=== PATIENT | female | born 1965 | race Caucasian/White ===

== ENCOUNTER 2024-10-15 17:45 | Inpatient (IN) | payer BC, SELFPAY ==
[2024-10-15] VITALS (41 sets, daily range): BP systolic 98–132; BP diastolic 54–78; PULSE 79–120; RESP 13–21; TEMP 36.1–36.3; O2SAT 87–96
--- NOTE | 2024-10-15 17:45 | RT.EKG_ITS ---
APPROVED REPORT Exam: Resting ECG Reason for Exam: overdose Patient Location: E HR:107 bpm ECG Measurements Heart Rate 107 AXIS OK 192 P 18 QRSd 99 QRS -21 QT 347 T 104 QTc 464 Conclusion Sinus tachycardia...rate> 99 Probable LVH with secondary repol abnrm...multiple LVH criteria
--- NOTE | 2024-10-15 17:54 | ED.GENADUL_ITS ---
Discharge Plan Disposition Patient Disposition: Admit to [facility] Condition: Serious Discharge Details Clinical Impression: Overdose, Hypokalemia, Hypomagnesemia Primary Care Provider: Unknown,Unknown ED Provider: Arnoldo Vance [place] Meds and New Rx's Prescriptions: No Action venlafaxine [Effexor XR] 150 MG capsule,extended release 24hr 150 mg PO DAILY Qty: 1 amlodipine 5 MG tablet 5 mg PO DAILY Qty: 1 valacyclovir 500 MG tablet 1,000 mg PO DAILY Qty: 1 Patient Comments: few days prior aspirin [Aspir-81] 81 MG tablet,delayed release (DR/EC) 81 mg PO DAILY Qty: 1 levothyroxine [Synthroid] 75 MCG tablet 75 mcg PO DAILY Qty: 1 losartan-hydrochlorothiazide 1 EACH tablet 1 tab-cap PO DAILY Qty: 1 simvastatin 20 MG tablet 20 mg PO HS Qty: 1 fluticasone propion-salmeterol [Advair Diskus] 1 EACH blister with device 1 puff Inhalation BID Qty: 1 albuterol sulfate [Ventolin HFA] 8 GM HFA aerosol inhaler 2 puff Inhalation Q4H PRN Qty: 1 Patient Comments: SOB lamotrigine 100 MG tablet 100 mg PO DAILY Qty: 2 nebivolol [Bystolic] 10 MG tablet 10 mg PO DAILY Qty: 1 Patient Comments: not taking omega 6-hho-kto-fish oil 1,200 MG capsule 1,200 mg PO BID Qty: 3 Rx Instructions: 2 TABS QAM, 1 TAB QPM METROGEL .75% Topical BID Qty: 1 Patient Comments: ROSACEA benzonatate [Tessalon Perles] 100 MG capsule 200 mg PO TID PRN omeprazole [Prilosec] 10 MG capsule,delayed release(DR/EC) 10 mg PO DAILY montelukast [Singulair] 10 MG tablet 10 mg PO DAILY Patient Comments: ran out metoprolol succinate 50 MG tablet extended release 24 hr 50 mg PO DAILY ibuprofen 800 MG tablet 800 mg PO TID PRNQty: 30 0RF meclizine [Antivert] 25 MG tablet 25 mg PO QID PRN PRN (Reason: Vertigo) Qty: 30 0RF prochlorperazine maleate [Compazine] 10 MG tablet 10 mg PO QID PRN PRN (Reason: NAUSEA VOMITNG HEADACHE) Qty: 10 0RF Ozempic 2 mg/dose (8 mg/3 mL) pen injector 2 mg SUBCUT .weekly Patient Comments: INJECT 2MG UNDER THE SKIN ONCE A WEEK rosuvastatin 20 mg tablet 20 mg PO DAILY Patient Comments: TAKE ONE TABLET BY MOUTH EVERY DAY HPI General Mode of arrival: wheelchair . Date/Time Provider Initiated Documentation: 10/15/24 17:46 . Limitations to Documentation: no limitations . Information obtained by: patient . History of Present Illness 58 year old F presents to the emergency department with the chief complaint of took extra seroquel to sleep and self harm, Patient started experiencing this hour(s) (1) and it has been constant. No relieving factors improve symptom(s), No exacerbating factors reported . Patient notes denies chest pain and shortness of breath. Patient did receive the following treatments prior to arrival, none Related Data Home Medications ?Medication ?Instructions ?Recorded ?Confirmed Metrogel .75% topical BID ##1 04/09/14 09/27/15 albuterol sulfate 90 mcg/actuation 2 puff inhalation Q4H PRN ##1 04/09/14 10/15/24 aerosol inhaler (Ventolin HFA) amlodipine 5 mg tablet 5 mg PO DAILY #1 tab-cap 04/09/14 10/15/24 aspirin 81 mg tablet,delayed 81 mg PO DAILY ##1 04/09/14 10/15/24 release (Aspir-) fluticasone 500 mcg-salmeterol 50 1 puff inhalation BID ##1 04/09/14 10/15/24 mcg/dose blistr powdr for inhalation (Advair Diskus) lamotrigine 100 mg tablet 100 mg PO DAILY #2 tab-caps 04/09/14 10/15/24 levothyroxine 75 mcg tablet 75 mcg PO DAILY #1 tab-cap 04/09/14 10/15/24 (Synthroid) losartan 100 1 tab-cap PO DAILY #1 tab-cap 04/09/14 10/15/24 mg-hydrochlorothiazide 25 mg tablet nebivolol 10 mg tablet (Bystolic) 10 mg PO DAILY #1 tab-cap 04/09/14 10/15/24 omega 0-uht-eql-fish oil 1,200 mg 1,200 mg PO BID ##3 04/09/14 10/15/24 (144 mg-216 mg) capsule simvastatin 20 mg tablet 20 mg PO HS #1 tab-cap 04/09/14 10/15/24 valacyclovir 500 mg tablet 1,000 mg PO DAILY #1 tab-cap 04/09/14 10/15/24 venlafaxine 150 mg 150 mg PO DAILY #1 tab-cap 04/09/14 10/15/24 capsule,extended release 24 hr (Effexor XR) benzonatate 100 mg capsule 200 mg PO TID PRN 07/11/14 10/15/24 (Tessalon Perles) montelukast 10 mg tablet 10 mg PO DAILY 12/26/14 10/15/24 (Singulair) omeprazole 10 mg capsule,delayed 10 mg PO DAILY 12/26/14 10/15/24 release (Prilosec) ibuprofen 800 mg tablet 800 mg PO TID PRN #30 tabs 08/19/15 10/15/24 metoprolol succinate 50 mg 50 mg PO DAILY 08/19/15 10/15/24 tablet,extended release 24 hr meclizine 25 mg tablet (Antivert) 25 mg PO QID PRN PRN Vertigo #30 09/28/15 10/15/24 tabs prochlorperazine maleate 10 mg 10 mg PO QID PRN PRN NAUSEA 09/28/15 10/15/24 tablet (Compazine) VOMITNG HEADACHE ##10 rosuvastatin 20 mg tablet 20 mg PO DAILY 10/15/24 10/15/24 semaglutide 2 mg/dose (8 mg/3 mL) 2 mg subcut .weekly 10/15/24 10/15/24 subcutaneous pen injector (Ozempic) Previous Rx's ?Medication ?Instructions ?Recorded ibuprofen 800 mg tablet 800 mg PO TID PRN #30 tabs 08/19/15 meclizine 25 mg tablet (Antivert) 25 mg PO QID PRN PRN Vertigo #30 09/28/15 tabs prochlorperazine maleate 10 mg 10 mg PO QID PRN PRN NAUSEA 09/28/15 tablet (Compazine) VOMITNG HEADACHE ##10 Allergies Allergy/AdvReac Type Severity Reaction Status Date / Time hydrocodone Allergy Intermediate makes face Unverified 09/27/15 21:46 swell bupropion HCl (From AdvReac suicidal Unverified 09/27/15 21:46 Wellbutrin) ENVIRONMENTAL Allergy SINUS, Uncoded 09/27/15 21:46 ITCHY EYES General Stated Complaint: PsychEval DAMIÁN: 2 Review of Systems All systems reviewed & are unremarkable except as noted in HPI and below Constitutional Constitutional: Denies chills, Denies fever(s) and Denies weakness Cardiovascular Cardiovascular: Denies chest pain and Denies dyspnea Respiratory Respiratory: Denies cough and Denies dyspnea Gastrointestinal Gastrointestinal: Denies abdominal pain, Denies nausea and Denies vomiting Neurologic Neurologic: Denies weakness Psychiatric Psychiatric: Reports depression Exam Const General: no acute distress and other (drowsy) Orientation: alert HENMT Head: normal to inspection Ears: external ears normal General nose exam: external nose normal Mouth: moist mucous membranes Eyes General: appearance normal, both eyes and all related structures Neck Neck: normal visual inspection Resp Effort & Inspection: normal respiratory effort and able to speak in complete sentences Cardio Rate: regular rate Skin General skin exam: no rashes or lesions noted Neuro General: patient alert and patient oriented x3 Cognition: normal cognition Extrem General: normal to inspection Psych Mental Status: mental status grossly normal Attitude: cooperative Course Vital Signs Vital signs: Vital Signs Temperature 36.1 C L 10/15/24 17:49 Pulse 120 H 10/15/24 17:49 Respiratory Rate 15 10/15/24 17:49 Blood Pressure 128/68 10/15/24 17:49 Pulse Oximetry 92 10/15/24 17:49 Temperature 36.1 C L 10/15/24 17:49 Pulse 120 H 10/15/24 17:49 Respiratory Rate 15 10/15/24 17:49 Blood Pressure 128/68 10/15/24 17:49 Blood Pressure Position Sitting 10/15/24 17:49 Pulse Oximetry 92 10/15/24 17:49 Oxygen Delivery Method Room Air 10/15/24 17:49 Oxygen Flow Rate 0 10/15/24 17:49 Medical Decision Making 58-year-old female who states she has a history of PTSD and bipolar comes in with several months of thoughts of self-harm and tonight took 68 of her Seroquel to sleep and also for self-harm. She denies ingesting anything else and denies any alcohol or drug use. She arrives awake but does seem drowsy. She is protecting her airway. She is answering questions appropriately. She moves her extremities all equally. Suspect she did overdose on Seroquel. Will perform talk screen with ethyl alcohol, urine drug screen, acetaminophen and salicylate levels, and also check a CBC and metabolic panel keep on telemetry. Labs remarkable for potassium of 2.5 and magnesium 1.7, IV and oral repletion ordered for potassium and IV repletion ordered for magnesium. Otherwise talk screen negative. Will repeat 4 hours acetaminophen and salicylate patient is still drowsy but arousable. Is at risk for sedation and hypotension with the seroquel, Will need overnight observation until medically cleared, will discuss with hospitalist about admission. Differential Diagnosis Differential Diagnosis: Overdose, depression, SI Lab Data Lab results reviewed: Yes I reviewed the patient's lab results. ECG Data Attestation: I personally reviewed and interpreted this ECG (s) as follows: Prior ECG tracings: not available for review Interpretation: sinus tachycardia, rate of 107 pr 192, no stemi, no prolonged qtc Quality:SDOH Health Related Social Needs: No Data to Display [facility] All Active Problems (Updated 10/15/24 @ 19:15 by Arnoldo Vance MD) Hypomagnesemia (Acute) Hypokalemia (Acute) Overdose (Acute) Surgical History (Updated 08/23/18 @ 14:33 by [employer] [place]) Ligation of fallopian tube Cholecystectomy Social History Smoking/Tobacco Use Status: Never Smoking risk assessment performed?: Yes Drug use: Never
[2024-10-15 18:08] LABS: Bilirubin Negative (Negative); Blood Negative (Negative); Clarity Clear (Clear); Glucose Negative (Negative); Ketones Negative (Negative); Leukocyte Esterase Trace (Negative); Nitrite Negative (Negative); Urobilinogen 0.2 mg/dL (Up to 0.2)
[2024-10-15 18:18] LABS: BE (Venous) 1 mmol/L (-2-3); HCO3 (Venous) 25 mmol/L (23-28); O2 Sat (Venous) 99 %; TCO2 (Venous) 22 mmol/L (24-29); pCO2 (Venous) 35 mmHg (41-51); pH (Venous) 7.46 (7.31-7.41); pO2 (Venous) 98 mmHg
[2024-10-15 18:24] LABS: *AMPHETAMINES SCREEN URINE Negative (Negative); *BARBITURATES SCREEN URINE Negative (Negative); *BENZODIAZEPINES SCREEN URINE Negative (Negative); Cannabinoids THC Negative (Negative); Cocaine Screen,Urine Negative (Negative); METHADONE URINE SCREEN Negative (Negative); OPIATES URINE SCREEN Negative (Negative)
--- NOTE | 2024-10-15 18:25 | NUR.NOTE ---
Poision controll was contacted re patient. Posion control encouraged to repeat labs q4hrly, trend lactate, made aware of poison control recommendations
[2024-10-15 18:28] LABS: Tricyclic Antidepressants Negative (Negative)
[2024-10-15 18:28] LABS: Abs Immature Grans 0.01 10^3/uL (0.0-0.06); Absolute Basophil Count 0.05 10^3/uL (0.0-0.2); Absolute Eosinophil Count 0.06 10^3/uL (0.0-0.7); Absolute Lymphocyte Count 2.16 10^3/uL (1.2-3.4); Absolute Monocyte Count 0.43 10^3/uL (0.1-0.8); Absolute Neutrophil Count 4.15 10^3/uL (1.2-6.7); Basophils % 0.7 %; Eosinophils % 0.9 %; HCT 36.4 % (36.0-46.0); Immature Grans % 0.1 %; Lymphocytes % 31.5 %; MCH 25.7 pg (27.0-33.0); MCV 78 fL (80-95); MPV 9.5 fL (8.0-11.0); Monocytes % 6.3 %; Neutrophils % 60.5 %; Platelet Count 163 10^3/uL (130-400); RBC 4.67 10^6/uL (3.93-5.22); RDW 15.9 % (11.7-14.6); RDW-SD 44.5 fL; WBC 6.86 10^3/uL (4.4-10.8)
[2024-10-15 18:31] LABS: RBC 0-2 HPF (0-2)
[2024-10-15 18:32] LABS: Bacteria Few HPF (Negative); Crystals Few Amorphous HPF (Negative); Epithelial Cells Rare HPF (Negative); Mucus Trace (Negative); Other Cells Few Transitional (Negative)
[2024-10-15 18:33] LABS: C & S Indicated? No; Casts 0-2 Hyaline LPF (Negative)
[2024-10-15 18:35] LABS: INR 1.1 (0.9-1.1); PTT Activated 25.5 sec (23.6-32.8)
[2024-10-15 18:47] LABS: ALT 33 U/L (14-59); AST 23 U/L (15-37); Albumin 3.7 g/dL (3.4-5.0); Alkaline Phosphatase 70 U/L (46-116); Anion Gap 13.5 mmol/L (3-11); BUN 20 mg/dL (7-18); Bilirubin, Total 0.31 mg/dL (0.2-1.0); CO2 25.5 mmol/L (21.0-32.0); Calcium 9.3 mg/dL (8.5-10.1); Chloride 102 mmol/L (98-107); ETHANOL BLOOD < 3.0 mg/dL (<10); Estimated GFR 65.71 (mL/min/1.73m2); Glucose 179 mg/dL (74-106); Magnesium 1.7 mg/dL (1.8-2.4); Sodium 141 mmol/L (136-145); TSH (W/Ref FT4) 1.42 uIU/mL (0.36-3.74)
[2024-10-15 18:49] LABS: Potassium 2.5 mmol/L (3.5-5.1)
[2024-10-15 18:59] LABS: Salicylate < 2.8 mg/dL (<2.8)
[2024-10-15 19:00] LABS: Acetaminophen < 2 ug/mL (10-30)
[2024-10-15] MEDS: MAGNESIUM SULFATE 1 GM/100 ML BAG IV_INF (19:07)
[2024-10-15] MEDS: Potassium Chloride Liquid 20 MEQ PKT 40 MEQ PO (19:08)
[2024-10-15] MEDS: POTASSIUM CHLORIDE 20 MEQ/100 ML BAG 50 MEQ IV_INF (19:08)
--- NOTE | 2024-10-15 19:27 | HPE_ITS ---
Date of service: 10/15/24 Time of Service: 19:27 Assessment and Plan Assessment and plan (1) Intentional overdose: Status: Acute Assessment and plan: - Patient stated many months of thoughts of self-harm, but only acted upon it prior to arrival where she took 6-8 of her home Seroquel -Patient denied taking any alcohol, other illicit substances, salicylates or acetaminophen -Initial salicylate and acetaminophen level negative -Emergency room physician discussed with poison control who recommended monitoring the patient for 24 hours given the prolonged half-life of Seroquel -Monitor patient in the intensive care unit, and if she becomes significantly somnolent or unable to protect her airway well intubate for airway protection -Will reach back out to poison control if needed -As soon as patient is medically appropriate will need to reach out to mental health for consideration of the EEGing the patient (2) Hypokalemia: Status: Acute Assessment and plan: -Potassium noted to be 2.5 in the emergency department -Was given 40 mg p.o. and 20 mg IV -Follow-up a.m. BMP (3) Bipolar disorder: Status: Acute Assessment and plan: - Hold home psychiatric medications at this time (4) HTN (hypertension): Status: Chronic Assessment and plan: - Continue home amlodipine, hold home losartan/HCTZ -Continue home metoprolol (5) Hypothyroid: Status: Chronic Assessment and plan: - Continue home Synthroid History of Present Illness History of Present Illness Chief Complaint: Seroquel overdose Narrative: 58-year-old female with a past medical history of PTSD, bipolar, hypertension, hypothyroidism, asthma presents to the emergency department complaints of several months of self-harm and stating intentional Seroquel overdose. Patient states that over the last several months she has had increasing thoughts of self-harm though she has not acted upon those thoughts of health harm until this evening where she took about 6-8 of her home Seroquel. She denies having ingested any alcohol, drugs or other substances. In the emergency department patient was noted as being somewhat tachycardic but with otherwise normal vital signs. She was awake but drowsy, was able to protect her airway and was answering all questions appropriately and moving all extremities without difficulty. Initial talk screen, salicylates and acetaminophen levels were negative. While in the emergency department emergency room physician reached out to poison control who recommended repeating salicylate and acetaminophen levels in 4 hours, but stated that the patient should be observed for 24 hours given the overall half-life of Seroquel and risk of drowsiness and progression to respiratory failure. At which time emergency room physician paged hospitalist for admission for patient with Seroquel overdose who will be placed in the intensive care unit for close monitoring. Review of Systems All systems reviewed & are unremarkable except as noted in HPI and below PFSH All Active Problems (Updated 10/15/24 @ 21:06 by JV MARTIN) Hypothyroid (Chronic) HTN (hypertension) (Chronic) Bipolar disorder (Acute) Intentional overdose (Acute) Hypomagnesemia (Acute) Hypokalemia (Acute) Overdose (Acute) Surgical History (Updated 08/23/18 @ 14:33 by [employer]) Ligation of fallopian tube Cholecystectomy Social History Smoking/Tobacco Use Status: Never Smoking risk assessment performed?: Yes Drug use: Never Meds Allergies and Home Medications Allergies Allergy/AdvReac Type Severity Reaction Status Date / Time hydrocodone Allergy Intermediate makes face Unverified 09/27/15 21:46 swell bupropion HCl (From AdvReac suicidal Unverified 09/27/15 21:46 Wellbutrin) ENVIRONMENTAL Allergy SINUS, Uncoded 09/27/15 21:46 ITCHY EYES Home Medications ?Medication ?Instructions ?Recorded ?Confirmed ?Type Metrogel .75% topical BID ##1 04/09/14 09/27/15 History albuterol sulfate 90 mcg/actuation 2 puff inhalation Q4H PRN ##1 04/09/14 10/15/24 History aerosol inhaler (Ventolin HFA) amlodipine 5 mg tablet 5 mg PO DAILY #1 tab-cap 04/09/14 10/15/24 History aspirin 81 mg tablet,delayed 81 mg PO DAILY ##1 04/09/14 10/15/24 History release (Aspir-) fluticasone 500 mcg-salmeterol 50 1 puff inhalation BID ##1 04/09/14 10/15/24 History mcg/dose blistr powdr for inhalation (Advair Diskus) lamotrigine 100 mg tablet 100 mg PO DAILY #2 tab-caps 04/09/14 10/15/24 History levothyroxine 75 mcg tablet 75 mcg PO DAILY #1 tab-cap 04/09/14 10/15/24 History (Synthroid) losartan 100 1 tab-cap PO DAILY #1 tab-cap 04/09/14 10/15/24 History mg-hydrochlorothiazide 25 mg tablet nebivolol 10 mg tablet (Bystolic) 10 mg PO DAILY #1 tab-cap 04/09/14 10/15/24 History omega 6-ydp-tim-fish oil 1,200 mg 1,200 mg PO BID ##3 04/09/14 10/15/24 History (144 mg-216 mg) capsule simvastatin 20 mg tablet 20 mg PO HS #1 tab-cap 04/09/14 10/15/24 History valacyclovir 500 mg tablet 1,000 mg PO DAILY #1 tab-cap 04/09/14 10/15/24 History venlafaxine 150 mg 150 mg PO DAILY #1 tab-cap 04/09/14 10/15/24 History capsule,extended release 24 hr (Effexor XR) benzonatate 100 mg capsule 200 mg PO TID PRN 07/11/14 10/15/24 History (Tesshani Gauthier) montelukast 10 mg tablet 10 mg PO DAILY 12/26/14 10/15/24 History (Singulair) omeprazole 10 mg capsule,delayed 10 mg PO DAILY 12/26/14 10/15/24 History release (Prilosec) ibuprofen 800 mg tablet 800 mg PO TID PRN #30 tabs 08/19/15 10/15/24 Rx metoprolol succinate 50 mg 50 mg PO DAILY 08/19/15 10/15/24 History tablet,extended release 24 hr meclizine 25 mg tablet (Antivert) 25 mg PO QID PRN PRN Vertigo #30 09/28/15 10/15/24 Rx tabs prochlorperazine maleate 10 mg 10 mg PO QID PRN PRN NAUSEA 09/28/15 10/15/24 Rx tablet (Compazine) VOMITNG HEADACHE ##10 rosuvastatin 20 mg tablet 20 mg PO DAILY 10/15/24 10/15/24 History semaglutide 2 mg/dose (8 mg/3 mL) 2 mg subcut .weekly 10/15/24 10/15/24 History subcutaneous pen injector (Ozempic) Exam Narrative Exam Narrative: Fatigued but well-appearing older female laying in bed in no acute distress, ANO x 4, heart regular rhythm, lungs clear to auscultation bilaterally, abdomen soft, nontender, nondistended Results Labs 10/15/24 18:10 10/15/24 18:10 Labs: Laboratory Results - last 24 hr 10/15/24 10/15/24 10/15/24 17:55 18:10 18:32 WBC 6.86 RBC 4.67 Hgb 12.0 Hct 36.4 MCV 78 L MCH 25.7 L MCHC 33.0 RDW 15.9 H Plt Count 163 MPV 9.5 Immature Gran % 0.1 Neutrophils % 60.5 Lymphocytes % 31.5 Monocytes % 6.3 Eosinophils % 0.9 Basophils % 0.7 Nucleated RBC % 0.0 Absolute Neutrophils 4.15 Absolute Lymphocytes 2.16 Absolute Monocytes 0.43 Absolute Eosinophils 0.06 Absolute Basophils 0.05 PT 11.0 INR 1.1 APTT 25.5 VBG pH 7.46 H VBG pCO2 35 L VBG pO2 98 VBG HCO3 25 VBG Total CO2 22 L VBG O2 Saturation 99 VBG Base Excess 1 Sodium 141 Potassium 2.5 L* Chloride 102 Carbon Dioxide 25.5 Anion Gap 13.5 H BUN 20 H Creatinine 1.0 Est GFR (CKD-EPI 2020) 65.71 Glucose 179 H Calcium 9.3 Magnesium 1.7 L Total Bilirubin 0.31 AST 23 ALT 33 Alkaline Phosphatase 70 Total Protein 7.0 Albumin 3.7 TSH 1.42 Urine Color Yellow Urine Clarity Clear Urine pH 7.0 Ur Specific [place] 1.020 Urine Protein Negative Urine Ketones Negative Urine Blood Negative Urine Nitrite Negative Urine Bilirubin Negative Urine Urobilinogen 0.2 Ur Leukocyte Esterase Trace H Urine RBC 0-2 Urine WBC 5-10 Ur Epithelial Cells Rare Urine Crystals Few Amorphous Urine Bacteria Few Urine Casts 0-2 Hyaline Urine Mucus Trace Urine Other Few Transitional Ur Culture Indicated? No Urine Glucose Negative Salicylates < 2.8 Urine Opiates Screen Negative Urine Methadone Screen Negative Acetaminophen < 2 Ur Barbiturates Screen Negative Ur Tricyclics Screen Negative Ur Amphetamines Screen Negative U Benzodiazepines Scrn Negative Urine Cocaine Screen Negative Ur THC Screen Negative Ethyl Alcohol < 3.0 Last Vital Signs Temp 97.0 F L 10/15/24 17:49 Pulse 120 H 10/15/24 17:49 Resp 15 10/15/24 17:49 BP 128/68 10/15/24 17:49 Pulse Ox 92 10/15/24 17:49 Time Spent Time spent with Patient: >75 minutes Time was spent: preparing to see the patient(eg.review tests), obtaining and/or reviewing separately otained hiistory, ordering medications,tests, procedures, referring, communicating with other health rn complex care, indepentently interpreting results, counseling the patient and care coordination
--- NOTE | 2024-10-15 20:28 | W.PC.ACHO ---
Registration Status: Primary Language: Preferred Language: ED Information & Data Chief Complaint PsychEval 10/15/24 17:57 Chief Complaint PsychEval 10/15/24 17:55 Other Complaint OD/Poison 10/15/24 17:49 Triage Note PT reports taking 6-8 25mg 10/15/24 17:49 quetiapine tablets approx 1700 tonight. Apathetic to potential self harm the PT overdosed on purpose to deal with stresses in life. Currently feeling dizzy, sleepy. Ligation of fallopian tube Cholecystectomy Most Recent Vital Signs Temperature 36.1 C L 10/15/24 17:49 Pulse 90 10/15/24 19:16 Pulse 93 H 10/15/24 19:30 Respiratory Rate 14 10/15/24 19:30 Respiratory Effort Normal 10/15/24 17:57 Blood Pressure 98/54 L 10/15/24 19:16 Blood Pressure Mean 67 10/15/24 19:16 Blood Pressure Position Sitting 10/15/24 17:49 Pulse Oximetry 94 10/15/24 19:30 Oxygen Delivery Method Room Air 10/15/24 17:49 Oxygen Flow Rate 0 10/15/24 17:49 Allergies hydrocodone Allergy (Intermediate, Unverified 09/27/15 21:46) makes face swell bupropion HCl (From Wellbutrin) Adverse Reaction (Unverified 09/27/15 21:46) suicidal ENVIRONMENTAL Allergy (Uncoded 09/27/15 21:46) SINUS, ITCHY EYES Active Medications Generic Name Dose Route Start Last Admin Trade Name Freq PRN Reason Stop Dose Admin Potassium Chloride 20 meq in 100 mls @ 50 mls/hr 10/15/24 18:57 10/15/24 19:08 IV_INF 10/15/24 20:56 50 mls/hr NOW ONE Administration IV IV Catheter Type [Left Saline Lock Antecubital] IV Catheter Gauge [Left 18 Antecubital] Diagnostics 10/15/24 10/15/24 10/15/24 Range/Units 22:30 18:32 18:10 WBC 6.86 (4.4-10.8) 10^3/uL RBC 4.67 (3.93-5.22) 10^6/uL Hgb 12.0 (11.2-15.7) g/dL Hct 36.4 (36.0-46.0) % MCV 78 L (80-95) fL MCH 25.7 L (27.0-33.0) pg MCHC 33.0 (32.0-36.0) % RDW 15.9 H (11.7-14.6) % Plt Count 163 (130-400) 10^3/uL MPV 9.5 (8.0-11.0) fL Immature Gran % 0.1 % Neutrophils % 60.5 % Lymphocytes % 31.5 % Monocytes % 6.3 % Eosinophils % 0.9 % Basophils % 0.7 % Nucleated RBC % 0.0 (0.0-0.3) % Absolute Neutrophils 4.15 (1.2-6.7) 10^3/uL Absolute Lymphocytes 2.16 (1.2-3.4) 10^3/uL Absolute Monocytes 0.43 (0.1-0.8) 10^3/uL Absolute Eosinophils 0.06 (0.0-0.7) 10^3/uL Absolute Basophils 0.05 (0.0-0.2) 10^3/uL PT 11.0 (9.1-11.1) sec INR 1.1 (0.9-1.1) APTT 25.5 (23.6-32.8) sec VBG pH 7.46 H (7.31-7.41) VBG pCO2 35 L (41-51) mmHg VBG pO2 98 mmHg VBG HCO3 25 (23-28) mmol/L VBG Total CO2 22 L (24-29) mmol/L VBG O2 Saturation 99 % VBG Base Excess 1 (-2-3) mmol/L Sodium Pending 141 (136-145) mmol/L Potassium Pending 2.5 L* (3.5-5.1) mmol/L Chloride Pending 102 (98-107) mmol/L Carbon Dioxide Pending 25.5 (21.0-32.0) mmol/L Anion Gap Pending 13.5 H (3-11) mmol/L BUN Pending 20 H (7-18) mg/dL Creatinine Pending 1.0 (0.55-1.02) mg/dL Est GFR (CKD-EPI 2020) Pending 65.71 (mL/min/1.73m2) Glucose Pending 179 H (74-106) mg/dL Calcium Pending 9.3 (8.5-10.1) mg/dL Magnesium 1.7 L (1.8-2.4) mg/dL Total Bilirubin Pending 0.31 (0.2-1.0) mg/dL AST Pending 23 (15-37) U/L ALT Pending 33 (14-59) U/L Alkaline Phosphatase Pending 70 (46-116) U/L Total Protein Pending 7.0 (6.4-8.2) g/dL Albumin Pending 3.7 (3.4-5.0) g/dL TSH 1.42 (0.36-3.74) uIU/mL Urine Color (Yellow) Urine Clarity (Clear) Urine pH (5-8) Ur Specific [place] (1.005-1.025) Urine Protein (Neg-Trace) mg/dL Urine Ketones (Negative) mg/dL Urine Blood (Negative) Urine Nitrite (Negative) Urine Bilirubin (Negative) Urine Urobilinogen (Up to 0.2) mg/dL Ur Leukocyte Esterase (Negative) Urine RBC (0-2) HPF Urine WBC (0-5) HPF Ur Epithelial Cells (Negative) HPF Urine Crystals (Negative) HPF Urine Bacteria (Negative) HPF Urine Casts (Negative) LPF Urine Mucus (Negative) Urine Other (Negative) Ur Culture Indicated? Urine Glucose (Negative) mg/dL Salicylates Pending < 2.8 (<2.8) mg/dL Urine Opiates Screen (Negative) Urine Methadone Screen (Negative) Acetaminophen Pending < 2 (10-30) ug/mL Ur Barbiturates Screen (Negative) Ur Tricyclics Screen (Negative) Ur Amphetamines Screen (Negative) U Benzodiazepines Scrn (Negative) Urine Cocaine Screen (Negative) Ur THC Screen (Negative) Ethyl Alcohol < 3.0 (<10) mg/dL 10/15/24 Range/Units 17:55 WBC (4.4-10.8) 10^3/uL RBC (3.93-5.22) 10^6/uL Hgb (11.2-15.7) g/dL Hct (36.0-46.0) % MCV (80-95) fL MCH (27.0-33.0) pg MCHC (32.0-36.0) % RDW (11.7-14.6) % Plt Count (130-400) 10^3/uL MPV (8.0-11.0) fL Immature Gran % % Neutrophils % % Lymphocytes % % Monocytes % % Eosinophils % % Basophils % % Nucleated RBC % (0.0-0.3) % Absolute Neutrophils (1.2-6.7) 10^3/uL Absolute Lymphocytes (1.2-3.4) 10^3/uL Absolute Monocytes (0.1-0.8) 10^3/uL Absolute Eosinophils (0.0-0.7) 10^3/uL Absolute Basophils (0.0-0.2) 10^3/uL PT (9.1-11.1) sec INR (0.9-1.1) APTT (23.6-32.8) sec VBG pH (7.31-7.41) VBG pCO2 (41-51) mmHg VBG pO2 mmHg VBG HCO3 (23-28) mmol/L VBG Total CO2 (24-29) mmol/L VBG O2 Saturation % VBG Base Excess (-2-3) mmol/L Sodium (136-145) mmol/L Potassium (3.5-5.1) mmol/L Chloride (98-107) mmol/L Carbon Dioxide (21.0-32.0) mmol/L Anion Gap (3-11) mmol/L BUN (7-18) mg/dL Creatinine (0.55-1.02) mg/dL Est GFR (CKD-EPI 2020) (mL/min/1.73m2) Glucose (74-106) mg/dL Calcium (8.5-10.1) mg/dL Magnesium (1.8-2.4) mg/dL Total Bilirubin (0.2-1.0) mg/dL AST (15-37) U/L ALT (14-59) U/L Alkaline Phosphatase (46-116) U/L Total Protein (6.4-8.2) g/dL Albumin (3.4-5.0) g/dL TSH (0.36-3.74) uIU/mL Urine Color Yellow (Yellow) Urine Clarity Clear (Clear) Urine pH 7.0 (5-8) Ur Specific [place] 1.020 (1.005-1.025) Urine Protein Negative (Neg-Trace) mg/dL Urine Ketones Negative (Negative) mg/dL Urine Blood Negative (Negative) Urine Nitrite Negative (Negative) Urine Bilirubin Negative (Negative) Urine Urobilinogen 0.2 (Up to 0.2) mg/dL Ur Leukocyte Esterase Trace H (Negative) Urine RBC 0-2 (0-2) HPF Urine WBC 5-10 (0-5) HPF Ur Epithelial Cells Rare (Negative) HPF Urine Crystals Few Amorphous (Negative) HPF Urine Bacteria Few (Negative) HPF Urine Casts 0-2 Hyaline (Negative) LPF Urine Mucus Trace (Negative) Urine Other Few Transitional (Negative) Ur Culture Indicated? No Urine Glucose Negative (Negative) mg/dL Salicylates (<2.8) mg/dL Urine Opiates Screen Negative (Negative) Urine Methadone Screen Negative (Negative) Acetaminophen (10-30) ug/mL Ur Barbiturates Screen Negative (Negative) Ur Tricyclics Screen Negative (Negative) Ur Amphetamines Screen Negative (Negative) U Benzodiazepines Scrn Negative (Negative) Urine Cocaine Screen Negative (Negative) Ur THC Screen Negative (Negative) Ethyl Alcohol (<10) mg/dL Intake and Output - 24 Hour Total 10/15/24 17:45 thru 10/15/24 17:49 Weight 103.4 kg Falls Risk Assessment History of Falls No History 10/15/24 17:57 Contributing Factors Unstable,Impairments 10/15/24 17:57 Ambulatory Aids Independent 10/15/24 17:57 Tubes/Lines None 10/15/24 17:57 Gait Evaluation No gait disturbance 10/15/24 17:57 Cognition No cognitive impairment 10/15/24 17:57 Fall Total Score 6 10/15/24 17:57 Level of Risk Standard/Low Risk 10/15/24 17:57 Problems Hypothyroid (Chronic) HTN (hypertension) (Chronic) Bipolar disorder (Acute) Intentional overdose (Acute) Hypokalemia (Acute) Notes 10/15/24 18:25 Nursing Notes by Magdalena Dominique was contacted re patient. Posion control encouraged to repeat labs q4hrly, trend MD samir made aware of poison control recommendations Initialized on 10/15/24 18:25 - END OF NOTE v v v v v v v v v Sending and/or Receiving Nurses: Please use comment section below to note any information pertinent to the patient hand-off not included above. Information / Comments: no questions at time of report Report received from: Magdalena @2020
[2024-10-15] MEDS: Normal Saline Flush 10 ML SYR IVP (21:55)
[2024-10-15 22:57] LABS: Acetaminophen < 2 ug/mL (10-30); Salicylate < 2.8 mg/dL (<2.8)
[2024-10-15 22:58] LABS: ALT 30 U/L (14-59); AST 19 U/L (15-37); Albumin 3.6 g/dL (3.4-5.0); Alkaline Phosphatase 67 U/L (46-116); Anion Gap 10.2 mmol/L (3-11); BUN 19 mg/dL (7-18); Bilirubin, Total 0.32 mg/dL (0.2-1.0); CO2 27.8 mmol/L (21.0-32.0); CREATININE 0.9 mg/dL (0.55-1.02); Calcium 9.3 mg/dL (8.5-10.1); Chloride 106 mmol/L (98-107); Estimated GFR 74.57 (mL/min/1.73m2); Glucose 135 mg/dL (74-106); Potassium 3.2 mmol/L (3.5-5.1); Sodium 144 mmol/L (136-145)
[2024-10-16] VITALS (23 sets, daily range): BP systolic 114–133; BP diastolic 63–85; PULSE 77–101; RESP 14–29; TEMP 36.6; O2SAT 92–97
--- NOTE | 2024-10-16 02:39 | NUR.NOTE ---
Nursing Note: [id number] Spoke with Kolby with poison control and they medically clear patient at this time. Dr. Gill notified.
[2024-10-16] MEDS: Normal Saline Flush 10 ML SYR IVP ×2 (05:59→07:53)
[2024-10-16 06:05] LABS: HCT 34.9 % (36.0-46.0); HGB 12.9 g/dL (11.2-15.7); MCH 29.1 pg (27.0-33.0); MCV 79 fL (80-95); MPV 9.6 fL (8.0-11.0); Platelet Count 151 10^3/uL (130-400); RBC 4.44 10^6/uL (3.93-5.22); RDW 16.2 % (11.7-14.6); RDW-SD 45.8 fL; WBC 5.34 10^3/uL (4.4-10.8)
[2024-10-16 06:23] LABS: ALT 29 U/L (14-59); AST 20 U/L (15-37); Albumin 3.4 g/dL (3.4-5.0); Alkaline Phosphatase 63 U/L (46-116); Anion Gap 8.8 mmol/L (3-11); BUN 19 mg/dL (7-18); Bilirubin, Total 0.31 mg/dL (0.2-1.0); CO2 29.2 mmol/L (21.0-32.0); Chloride 107 mmol/L (98-107); Estimated GFR 65.71 (mL/min/1.73m2); Glucose 165 mg/dL (74-106); Sodium 145 mmol/L (136-145); Total Protein 6.8 g/dL (6.4-8.2)
[2024-10-16 06:28] LABS: Potassium 2.9 mmol/L (3.5-5.1)
[2024-10-16] MEDS: Levothyroxine 75 MCG TAB PO (06:49)
[2024-10-16] MEDS: Insulin Aspart 300 UNITS/3 ML PEN SC (07:48)
[2024-10-16] MEDS: Rosuvastatin 20 MG TAB PO (07:51)
[2024-10-16] MEDS: amLODIPine 5 MG TAB PO (07:51)
[2024-10-16] MEDS: Metoprolol CR 50 MG TABCR PO (07:52)
[2024-10-16] MEDS: Potassium Chloride 20 MEQ TABCR 40 MEQ PO (08:24)
[2024-10-16] MEDS: POTASSIUM CHLORIDE 20 MEQ/100 ML BAG 50 MEQ IV_INF (08:24)
--- NOTE | 2024-10-16 08:49 | INITIAL_ITS ---
Date of service: 10/16/24 Time of Service: 08:49 Care Management Initial Assmt Initial Assessment Reason for Hospitalization: intentional overdose of Seroquel Functional Status/Living Situation Patient Presentation: Abigail was admitted last night after taking 6-8 of her Seroquel tablets. She admitted to having many months of thoughts of self harm. She is connected with both a psychiatric med provider, and a therapist in the community. When CM met with her today, she was sitting up in the chair, and had just finished lunch. Abigail was pleasant and agreeable to speaking with CM. Abigail had already been cleared by the mental health team at [facility], and a safety plan was worked on and provided to her. Abigail's therapist has already been in touch with her, and is available to her at any time. Abigail stated that she does feel safe to go home, she is just overwhelmed with work, the holidays and her . Abigail stated missing her 2 dogs, and was eager to see them. 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.) Instrumental Activities of Daily Living (ADLs): Independent Medications Medication Management: No Issues/Barriers identified Advance Directives Advance Directives: Do you have an Advance Directive: N 04/03/13 12:33 AD On File at [facility]: N 01/11/13 11:48 Date Asked 10/15/24 10/15/24 18:07 AD Date Reviewed COLST On File at [facility] COLST Date Scanned Code Status Resuscitation Status Full Code Insurance Coverage/Financial Issues Insurance: [place] Financial Issues: denies Care Team Visit Care Team Role Provider Type Unknown Unknown Primary Care Provider STAFF PHYSICIAN Arnoldo Vance MD Emergency Provider [facility] STAFF PHYSICIAN Vickey Gill MD Admit Provider [facility] STAFF PHYSICIAN Attending Provider Discharge Potential Discharge Needs: Other (follow up with therapist and psych provider.) Anticipated Barriers to Discharge: None Identified Patient/Family Education Needs: Review discharge instructions, discuss Ask Me Three Transportation: Private vehicle Plan: Anticipate that Abigail will be discharged this evening, or early tomorrow with no new orders. She will f/u with her therapist and her psych provider, and continue per her safety plan. Abigail will transport home with her . CM will continue to follow. PFSH All Active Problems (Updated 10/16/24 @ 09:39 by Elijah Strickland) DVT prophylaxis (Acute) Hypoxia (Acute) Hypothyroid (Chronic) HTN (hypertension) (Chronic) Bipolar disorder (Acute) Intentional overdose (Acute) Hypomagnesemia (Acute) Hypokalemia (Acute) Overdose (Acute) Surgical History (Updated 08/23/18 @ 14:33 by [employer] MA) Ligation of fallopian tube Cholecystectomy Social History Smoking/Tobacco Use Status: Never Smoking risk assessment performed?: Yes Drug use: Never Housing: house Readmission Within the Past 30 Days Yes or No: No SDOH(Care Management) Screening Will the Patient Participate in the Screening?: Declined to provide Do you worry about having a steady place to live?: no In the past 12 months, have you had to go without electric, gas, oil or water in your home?: choose not to answer Have you or anyone in your house had to go without enough food to eat?: choose not to answer Has lack of transportation kept you from medical appointments or from doing things needed for daily living?: choose not to answer Has anyone in your support network made you feel unsafe for any reason?: choose not to answer
--- NOTE | 2024-10-16 08:59 | DI.RAD_ITS ---
Exam(s) XR CHEST 2V PA LATERAL EXAM: XR CHEST 2V PA LATERAL CLINICAL HISTORY: rales right base, hypoxia, quetiapine OD. TECHNIQUE: 2D digital imaging was performed. COMPARISON: No exams were available for comparison FINDINGS: 2 views: Chest leads in place. Heart size is normal. The mediastinum is not widened. Lungs are clear. No infiltrates nor pleural effusions. IMPRESSION: No acute pulmonary findings. DATA REPOSITORY: RADIATION DOSE DELIVERED:
[2024-10-16] MEDS: Omeprazole 10 MG CAPCR PO (09:10)
--- NOTE | 2024-10-16 09:21 | PGE_ITS ---
Date of Service Date of service: 10/16/24 Time of Service: 09:21 Assessment and Plan Assessment and plan (1) Intentional overdose: Status: Acute Assessment and plan: - Patient stated many months of thoughts of self-harm, but only acted upon it prior to arrival where she took 6-8 of her home Seroquel -Patient denied taking any alcohol, other illicit substances, salicylates or acetaminophen, UDS/labs negative in ED. -Emergency room physician discussed with poison control who recommended monitoring the patient for 24 hours given the prolonged half-life of Seroquel -Monitor patient in the intensive care unit, and if she becomes significantly somnolent or unable to protect her airway well intubate for airway protection -If she remains stable, will be 24 hours out from ingestion by this afternoon, mental health evaluation then, but at this point it is not clear to me that she should be EE'd. (2) Hypokalemia: Status: Acute Assessment and plan: -Potassium noted to be 2.5 in the emergency department -Was given 40 mg p.o. and 20 mg IV, repeat this morning -This looks like a chornic issue. Per med rec on losartan/HCTZ and CLD? Will try to verify with PCP. Her sodiums run on high end and K+ chronically low. She aldosterone/PRA may be considered, and she may benefit from MRA such as spironolactone, but for now BP not high. -Follow BMP, Mg (3) Bipolar disorder: Status: Acute Assessment and plan: - Home psychiatric medications held on admission, will resume lamotrigine and venlafaxine. Await psych assessment regarding quetiapine. (4) HTN (hypertension): Status: Chronic Assessment and plan: - Continue home amlodipine, holding home losartan/HCTZ. Chlorthalidone also on list? Need to clarfiy -Continue home metoprolol for now, though the indication for beta amy unclear, it may make depression worse -see above, may benefit from MRA, though with low BP only on lower dose amlodipine and metoprolol, I wonder if she is taking her medication regularly. (5) Hypothyroid: Status: Chronic Assessment and plan: - Continue home Synthroid, need to clarify home dose as listed as 112mcg and given 75mcg here. (6) Hypoxia: Status: Acute Assessment and plan: Has been on nasal cannula, no clear cause for hypoxia other than sedation, possible baseline ELADIO. She does have right basilar rales, get CXR, could have aspirated. Wean off O2. (7) DVT prophylaxis: Status: Acute Assessment and plan: Not high risk, early ambulation Subjective Subjective Patient reports: no new complaints; denies bowel movement, diarrhea, vomiting, shortness of breath or fever Interval history since last seen: 24 hr: No events on tele, observed in ICU Still feels groggy this morning, tired. Not feeling suicidal now, feels safe. Has psychiatrist and therapist as outpatient. She denies chest pain, palpitations, abdominal pain. Mouth is dry, would like to drink. Hasn't eaten yet. Per RN no urination overnight, but patient states was doing fine before. Exam Narrative Exam Narrative: Fatigued but well-appearing female laying in bed in no acute distress, ANO x 4, NC in place. MM dry, OP benign. heart regular rhythm, lungs clear to auscultation bilaterally except rales right base. Abdomen soft, nontender, nondistended, +BS. Extremities warm, no edema. Normal movement 4 extremities, no tremor. Thought process linear, content normal, mildly depressed affect/mood. No current SI. Objective Last Vital Signs Temp 36.3 C L 10/15/24 21:32 Pulse 87 10/16/24 06:02 Resp 16 10/16/24 06:02 BP 119/76 10/16/24 06:02 Pulse Ox 96 10/16/24 06:02 Laboratory Results - last 24 hr 10/15/24 10/15/24 10/15/24 17:55 18:10 18:32 WBC 6.86 RBC 4.67 Hgb 12.0 Hct 36.4 MCV 78 L MCH 25.7 L MCHC 33.0 RDW 15.9 H Plt Count 163 MPV 9.5 Immature Gran % 0.1 Neutrophils % 60.5 Lymphocytes % 31.5 Monocytes % 6.3 Eosinophils % 0.9 Basophils % 0.7 Nucleated RBC % 0.0 Absolute Neutrophils 4.15 Absolute Lymphocytes 2.16 Absolute Monocytes 0.43 Absolute Eosinophils 0.06 Absolute Basophils 0.05 PT 11.0 INR 1.1 APTT 25.5 VBG pH 7.46 H VBG pCO2 35 L VBG pO2 98 VBG HCO3 25 VBG Total CO2 22 L VBG O2 Saturation 99 VBG Base Excess 1 Sodium 141 Potassium 2.5 L* Chloride 102 Carbon Dioxide 25.5 Anion Gap 13.5 H BUN 20 H Creatinine 1.0 Est GFR (CKD-EPI 2020) 65.71 Glucose 179 H Calcium 9.3 Magnesium 1.7 L Total Bilirubin 0.31 AST 23 ALT 33 Alkaline Phosphatase 70 Total Protein 7.0 Albumin 3.7 TSH 1.42 Urine Color Yellow Urine Clarity Clear Urine pH 7.0 Ur Specific [place] 1.020 Urine Protein Negative Urine Ketones Negative Urine Blood Negative Urine Nitrite Negative Urine Bilirubin Negative Urine Urobilinogen 0.2 Ur Leukocyte Esterase Trace H Urine RBC 0-2 Urine WBC 5-10 Ur Epithelial Cells Rare Urine Crystals Few Amorphous Urine Bacteria Few Urine Casts 0-2 Hyaline Urine Mucus Trace Urine Other Few Transitional Ur Culture Indicated? No Urine Glucose Negative Salicylates < 2.8 Urine Opiates Screen Negative Urine Methadone Screen Negative Acetaminophen < 2 Ur Barbiturates Screen Negative Ur Tricyclics Screen Negative Ur Amphetamines Screen Negative U Benzodiazepines Scrn Negative Urine Cocaine Screen Negative Ur THC Screen Negative Ethyl Alcohol < 3.0 10/15/24 10/16/24 22:30 05:36 WBC 5.34 RBC 4.44 Hgb 12.9 Hct 34.9 L MCV 79 L MCH 29.1 MCHC 37.0 H D RDW 16.2 H Plt Count 151 MPV 9.6 Immature Gran % Neutrophils % Lymphocytes % Monocytes % Eosinophils % Basophils % Nucleated RBC % Absolute Neutrophils Absolute Lymphocytes Absolute Monocytes Absolute Eosinophils Absolute Basophils PT INR APTT VBG pH VBG pCO2 VBG pO2 VBG HCO3 VBG Total CO2 VBG O2 Saturation VBG Base Excess Sodium 144 145 Potassium 3.2 L 2.9 L* Chloride 106 107 Carbon Dioxide 27.8 29.2 Anion Gap 10.2 8.8 BUN 19 H 19 H Creatinine 0.9 1.0 Est GFR (CKD-EPI 2020) 74.57 65.71 Glucose 135 H 165 H Calcium 9.3 9.0 Magnesium Total Bilirubin 0.32 0.31 AST 19 20 ALT 30 29 Alkaline Phosphatase 67 63 Total Protein 7.0 6.8 Albumin 3.6 3.4 TSH Urine Color Urine Clarity Urine pH Ur Specific [place] Urine Protein Urine Ketones Urine Blood Urine Nitrite Urine Bilirubin Urine Urobilinogen Ur Leukocyte Esterase Urine RBC Urine WBC Ur Epithelial Cells Urine Crystals Urine Bacteria Urine Casts Urine Mucus Urine Other Ur Culture Indicated? Urine Glucose Salicylates < 2.8 Urine Opiates Screen Urine Methadone Screen Acetaminophen < 2 Ur Barbiturates Screen Ur Tricyclics Screen Ur Amphetamines Screen U Benzodiazepines Scrn Urine Cocaine Screen Ur THC Screen Ethyl Alcohol Time Spent with Patient Time Spent with Patient: >50 minutes Time was spent: preparing to see the patient(eg.review tests), obtaining and/or reviewing separately otained hiistory, ordering medications,tests, procedures, referring, communicating with other health manager intensive care unit, indepentently interpreting results, counseling the patient and care coordination
[2024-10-16 10:02] LABS: Lab Add On Test DONE
[2024-10-16 10:10] LABS: Magnesium 1.9 mg/dL (1.8-2.4)
[2024-10-16 10:33] LABS: Hemoglobin A1C 7.3 % (<5.7)
--- NOTE | 2024-10-16 10:49 | PDOC.CMSAFE ---
Date of service: 10/16/24 Time of Service: 10:50 Care Management Safety Plan Status Status: Voluntary (pt brought herself in to ER for an overdose. Is currently in ICU, not in zone B. Safety plan has been modified to reflect that) Reason for Wait Reason for Wait: Assessment/Screening Safety Plan Safety Plan: VOLUNTARY FOR INPATIENT PSYCHIATRIC STABILIZATION.? Patient is appropriate in all interactions since arriving at [facility]; Pt has demonstrated appropriate coping and communication skills, has articulated his or her needs and concerns and is fully engaged during staff interactions. Safety plan has been established with patient, and care team, to adhere to patient goals, identify restrictions based on behavioral status, address nutrition, and determine allowed personal belongings, tools for hygiene and personal care. Determine level of activity including ambulation, level of supervision, visitors, and determine privileges based on behaviors and level of engagement by pt. VOLUNTARY SAFETY PLAN: 1. Will remain on suicide precautions, in paper clothes 2. Will remain under direct supervision of one-on-one staff at all times provided by [employer]; HAL[place], [employer] SYSTEMS MAINTAINER name plate stamping machine operator. 3. May have paper cups, plates, finger foods as well as a cardboard spoon with which to eat meals. 4. Follow [facility] Management of the Admitted Behavioral Health Patient policy. 5. Personal belongings-soft items permitted at RN discretion. 6. Visitors-none at this time - may visit 7. Activities: soft cart items approved per RN discretion. 8.commode available without restriction. 9. Phone: limited to [facility] cordless phone at RN discretion. Due to VOLUNTARY status, if patient wishes to leave [facility], staff will contact [facility] Crisis Screener ([phone]) and [employer]yman [employer] Plant Operator ([phone]) as soon as possible. In the event of elopement, notify [facility] Police ([phone]).
--- NOTE | 2024-10-16 10:58 | PHA.REVIEW2 ---
Pharmacy Admission Review Admission Clinical Review Admission Pharmacy Review: DVT prophylaxis (Acute) Hypoxia (Acute) Bipolar disorder (Acute) Intentional overdose (Acute) Hypokalemia (Acute) hydrocodone Allergy (Intermediate, Unverified 09/27/15 21:46) makes face swell bupropion HCl (From Wellbutrin) Adverse Reaction (Unverified 09/27/15 21:46) suicidal ENVIRONMENTAL Allergy (Uncoded 09/27/15 21:46) SINUS, ITCHY EYES Resuscitation Status Full Code Height 5 ft 2 in Weight 102.2 kg Comments Comments/Follow Ups: Possible discharge today pending mental health evaluation. Pharmacy Admission Review Renal Dosing Renal Dosing: BUN 19 mg/dL (7-18) H 10/16/24 05:36 Creatinine 1.0 mg/dL (0.55-1.02) 10/16/24 05:36 Medications needing adjustments: Reviewed (CrCl 69.45 mL/min) List of meds needing interventions: Current medications are okay Anticoagulation Anticoagulation: Hgb 12.9 g/dL (11.2-15.7) 10/16/24 05:36 Hct 34.9 % (36.0-46.0) L 10/16/24 05:36 Plt Count 151 10^3/uL (130-400) 10/16/24 05:36 INR 1.1 (0.9-1.1) 10/15/24 18:10 Creatinine 1.0 mg/dL (0.55-1.02) 10/16/24 05:36 DVT Prophylaxis: Intervened (Asked provider as there were no orders put in. Per provider patient is low risk) Relevant Labs Relevant Labs: Sodium 145 mmol/L (136-145) 10/16/24 05:36 Potassium 2.9 mmol/L (3.5-5.1) L* 10/16/24 05:36 Chloride 107 mmol/L (98-107) 10/16/24 05:36 Magnesium 1.9 mg/dL (1.8-2.4) 10/16/24 05:36 Electrolytes, C-Reactive P, ESR: Reviewed (Repleting K with 40mEq PO and IV infusion) DM Control DM Control: Glucose 165 mg/dL (74-106) H 10/16/24 05:36 Hemoglobin A1c 7.3 % (<5.7) H 10/16/24 05:36 Finger Stick Blood Glucose 146 0748 Finger Stick Blood Glucose 146 0739 Finger Stick Blood Glucose 146 0739 DM Control: Reviewed Insulin Dosing, Diabetic Medication: Has order for SS insulin Cardiac Review BP, HR, EF%: Reviewed (BP and HR WNL) List meds needing interventions: Has order for amlodipine 5mg daily QTc Review QTc: Reviewed (464 from 10/15/24) IV to PO Switch IV Medications: Reviewed Home Meds Home Med List reviewed: Intervened Relevent Home Meds Not ordered & why?: Losartan (on hold), HCTZ (on hold), quetiapine (on hold), ibuprofen (PRN), fish oil, Ozempic (on hold) and valacyclovir Recently filled but not on home med list: Breo ellipta, pantoprazole and chlorthalidone. Spoke with patient this morning via telephone, and patient confirmed that she is taking these. Added them to home med list, provider aware. Orders were then put in for Breo (changed to Symbicort per pharmacy protocol) and pantoprazole (discontinued omeprazole order). Provider holding chlorthalidone as patients BP has been WNL during this admission. Dose discrepancies between home med list and recent fills (external fill history): spoke with patient regarding the discrepancies listed below. Patient is unsure of what doses she takes at home. I updated home med list based on recent fill history and updated provider during morning meeting. Provider discontinued metoprolol order due to BP being WNL during this admission. Order was put in for lamotrigine ER 300mg and provider keeping amlodipine at 5mg daily for now. Provider changed levothyroxine order to 112mcg. - amlodipine - 5mg daily on home med list but 10mg daily per external fill history - metoprolol - XL 50mg daily on home med list but tartrate 50mg daily per external fill history - lamotrigine - 100mg daily on home med list but ER 300mg daily per external fill history - levothyroxine - 75mcg on home med list but 112 mcg daily per external fill history Provider is aware that lamotrigine ER 300mg is non-formulary. I changed order to patients own, will call nursing to see if this can be brought in if patient is not discharged today. Current Meds Current Medication Order Review: Intervened Comments: Changed albuterol order for PRN MOSES to PRN PRN Discontinued duplicate glucose oral gel order Comments Comments/Follow Ups: Possible discharge today pending mental health evaluation.
--- NOTE | 2024-10-16 11:20 | W.DIABETESNO ---
Date of service: 10/16/24 Diabetes Note Reason for Visit: Nutrition risk screening, diabetes education/mgt NOTE: Pt is 58yo female admitted after intentional overdose of quetiapine. Changed diet order this morning to safety tray
--- NOTE | 2024-10-16 13:57 | PDOC.MHCN ---
Date of service: 10/16/24 Time of Service: 11:00 PHQ-9 Over the last 2 weeks, how often have you been bothered by any of the following problems? 1. Little interest or pleasure in doing things: several days 2. Feeling down, depressed, or hopeless: several days 3. Trouble falling or staying asleep, or sleeping too much: not at all 4. Feeling tired or having little energy: several days 5. Poor appetite or overeating: several days 6. Feeling bad about yourself - or that you are a failure or have let yourself and your family down: several days 7. Trouble concentrating on things, such as reading the newspaper or watching television: not at all 8. Moving or speaking so slowly that other people could have noticed? - Or the opposite - being so fidgety or restless that you have been moving around a lot more than usual: not at all 9. Thoughts that you would be better off or of hurting yourself in some way: not at all Total score: 5 Source: Developed by Drs. Mich Lagos, Elida Nevarez, Cy Corey and colleagues, with an educational elizabeth from [employer]. Suicide Severity Rate CSSRS2 Have you been thinking about how you might do this?: Yes Have you had these thoughts and had some intention of acting on them?: No Have you started to work out or worked out the details of how to kill yourself? Do you intend to carry out this plan?: No CSSRS4 Was this within the past three months?: Yes Screening Score Total Score: 2 Screening: Positive Mental Health Emergency Note Release HS release signed:: Yes Reason for Visit Patient tried to overdose on seroquel last evening In the last 2 weeks has the pt presented for ES prior to today?: No Client Information Client is: New Well Housed: Yes Non Suicidal Self Injury Current: No History: No Safety Risk/Harm to Self or Others Current Ideation to Harm Self or Others: No Risk: Does risk to harm exist?: yes. Risk: Low Risk Duty to warn indicated: No Asssessment/Mental Status Appearance: Other Attitude: Cooperative and Friendly Behavior: Unremarkable Speech: Normal Affect: Cogruent with mood Mood: Sad, Stressed and Depressed Thought process: Circumstational Hallucinations: No Delusions: No Attention: Unremarkable Perception: Not impaired Orientation: Fully orientated Memory: Intact Insight: Fair Judgement: Fair Neurovegetative Symptoms Sleep: Increase Appetitie: Increase Energy: Decrease Libido: Not applicable Substance Use: Other Drug Issues: Other Do you use nicotine?: No Have you used substances in the last 7 days?: No Additional Issues: Assaultive/Threatening Behavior: No Medical Concerns: Yes Client engaged in active self harm w/weapon: No Threatening to run away: No Child reported abuse/neglect: No Voluntarily presenting for services: Yes Domestic violence is a concern: No Extreme Psychosis or extreme behavior is present: No Impression Client was feeling overwhelmed with her job, her , and the holidays. She insists she is better today and will consult her therapist and her psychiatrist before she leaves the hospital. She will also utilze 988 as needed 30/05. Plan/Disposition Recommended Disposition: Therapy and Med management. Plan: [place] with therapist, Jadon Jaramillo and her psychiatrist, Dr. Garces Reports/communication Outcome discussed with: Other
--- NOTE | 2024-10-16 15:50 | W.PM.DS.N ---
Date of service: 10/16/24 Time of Service: 15:50 DS: Diagnosis Discharge Diagnosis (1) Intentional overdose: Status: Acute (2) Hypokalemia: Status: Acute (3) Bipolar disorder: Status: Acute (4) HTN (hypertension): Status: Chronic (5) Hypothyroid: Status: Chronic (6) Hypoxia: Status: Acute (7) DVT prophylaxis: Status: Acute Discharge Plan Disposition Patient Disposition: Home Condition: Good Discharge Details Reason For Visit: Intentional Seroquel Overdose Admit Date/Time: 10/15/24 19:26 Admit Provider: Vickey Gill Attending Provider: Vickey Gill Primary Care Provider: Unknown,Unknown Hospital Course Hospital Course: 58 yo F with history of hypertension, asthma, type 2 DM, PTSD, and bipolar disorder who was admitted after taking 6-8 of her 50mg quetiapine after feeling suicidal during the months leading up to admission. Her drug and toxicology screens were negative and her metabolic labs were only significant for low potassium of 2.5 and magnesium of 1.7. Her EKG was reassuring. Poison control was consulted and recommended 24 hour observation with telemetry. She had no events on the monitor overnight in the ICU. She was given 2 liters via NC after O2 saturation was 87%. She had some slight rales in the right base but a negative chest x-ray. The rales and hypoxia were likely atelectasis associated with sedation, and her oxygen was stable on room air during the day of discharge. She was no longer having suicidal ideation actively on the day of discharge. She was evaluated by the mental health crisis team who recommended discharge home with follow up with her existing psychiatrist and therapist. She was confused about her blood pressure on admission. She was recently changed to chlothalidone, but was also taking losartan/HCTZ. She wasn't sure if she was still on metoprolol. Her blood pressure medications were held other than amlodipine 5mg. It was recommended she resume amlodipine and chlorthalidone at a lower dose along with a longer acting ARB olmestartan. Home Meds and New Rx's Prescriptions: New olmesartan 20 mg tablet 20 mg PO DAILY Qty: 30 3RF Rx Instructions: stop any losartan potassium chloride 20 mEq tablet extended release 20 meq PO DAILY Qty: 7 0RF Continued venlafaxine [Effexor XR] 150 MG capsule,extended release 24hr 150 mg PO DAILY Qty: 1 valacyclovir 500 MG tablet 1,000 mg PO DAILY Qty: 1 Patient Comments: few days prior albuterol sulfate [Ventolin HFA] 8 GM HFA aerosol inhaler 2 puff Inhalation Q4H PRN Qty: 1 Patient Comments: SOB omega 6-gnr-irr-fish oil 1,200 MG capsule 1,200 mg PO BID Qty: 3 Rx Instructions: 2 TABS QAM, 1 TAB QPM ibuprofen 800 MG tablet 800 mg PO TID PRNQty: 30 0RF Ozempic 2 mg/dose (8 mg/3 mL) pen injector 2 mg SUBCUT .weekly Patient Comments: INJECT 2MG UNDER THE SKIN ONCE A WEEK rosuvastatin 20 mg tablet 20 mg PO DAILY Patient Comments: TAKE ONE TABLET BY MOUTH EVERY DAY quetiapine 50 mg tablet 50 mg PO HS Patient Comments: TAKE ONE TABLET BY MOUTH AT BEDTIME venlafaxine 75 mg capsule,extended release 24hr 75 mg PO DAILY Patient Comments: TAKE ONE CAPSULE BY MOUTH EVERY DAY WITH 150MG CAPSULE fluticasone furoate-vilanterol 200-25 mcg/dose blister with device 1 inh INHALATION DAILY Patient Comments: INHALE 1 PUFF BY MOUTH ONCE DAILY pantoprazole 40 mg tablet,delayed release (DR/EC) 40 mg PO DAILY Patient Comments: TAKE ONE TABLET BY MOUTH EVERY DAY lamotrigine 300 mg tablet extended release 24hr 300 mg PO DAILY Patient Comments: TAKE ONE TABLET BY MOUTH EVERY DAY levothyroxine 112 mcg tablet 112 mcg PO DAILY Patient Comments: TAKE ONE TABLET BY MOUTH EVERY MORNING ON AN EMPTY STOMACH Changed chlorthalidone 25 mg tablet 12.5 mg PO DAILY Qty: 0 0RF Patient Comments: TAKE ONE TABLET BY MOUTH EVERY MORNING WITH FOOD amlodipine 10 mg tablet 5 mg PO DAILY Qty: 0 0RF Patient Comments: TAKE ONE TABLET BY MOUTH EVERY DAY Discontinued losartan-hydrochlorothiazide 1 EACH tablet 1 tab-cap PO DAILY Qty: 1 metoprolol tartrate 50 mg tablet 50 mg PO DAILY Patient Comments: TAKE ONE TABLET BY MOUTH EVERY DAY Discharge Instructions Additional Instructions: Resume your regular psychiatric medications and follow up with your therapist and psychiatrist. Return to the emergency room if you are feeling suicidal. Your potassium was very low due to taking the hydrochlorothiazide and chlorthalidone. STOP the losartan/hydrochlorothiazide and metoprolol CUT the amlodipine and chlorthalidone in half (1/2 tablet of each daily) start the olmestartan daily for blood pressure. This will help raise your potassium and protect your kidneys and will result in a more level dose than the losartan. Take the potassium supplement for the next week. Get your potassium and kidney function checked in 1 week to decide if you need more. Activity:: Activity as Tolerated Equipment/Supplies:: No Equipment Needed Diet:: As Tolerated Discharge Orders Discharge Orders: Discharge Order (Routine); Ordered 10/16/24 Ordered By: Elijah Strickland Other Ambulatory Orders: Basic Metabolic Panel (Routine) Timeframe: 1 Week Location: [facility] Ordered By: Elijah Strickland Magnesium (Routine) Timeframe: 1 Week Location: [facility] Ordered By: Elijah Strickland DS: Summary Time Spent with Patient providing and/or coordinating discharge services: Greater than 30 minutes Status at Discharge Functional status at discharge: independent ambulation Overall status at discharge: patient is back to baseline Mental Status: mental status grossly normal Speech and Movement: speech and movement normal Mood: congruent mood Affect: normal affect Quality:SDOH Health Related Social Needs: No Data to Display Exam Narrative Exam Narrative: Fatigued but well-appearing female sitting up in chair in no acute distress, ANO x 4. heart regular rhythm, lungs clear to auscultation bilaterally except slight rales right base. Abdomen soft, nontender, nondistended, +BS. Extremities warm, no edema. Normal movement 4 extremities, no tremor. Thought process linear, content normal, normal affect/mood. No current SI. Psych Mental Status: mental status grossly normal Speech and Movement: speech and movement normal Mood: congruent mood Affect: normal affect DS: Data Vitals/I&O Vitals and I&O: Vital Signs Temperature 36.6 C 10/16/24 09:34 Temperature Source Temporal Artery Scan 10/16/24 09:34 Pulse 78 10/16/24 12:01 Pulse 77 10/16/24 14:00 Respiratory Rate 14 10/16/24 14:00 Respiratory Effort Normal 10/15/24 21:32 Respiratory Depth Normal 10/15/24 21:32 Respiratory Pattern Normal 10/15/24 21:32 Blood Pressure 125/68 10/16/24 12:01 Blood Pressure Mean 85 10/16/24 12:01 Blood Pressure Position Supine 10/15/24 21:32 Pulse Oximetry 96 10/16/24 14:00 Oxygen Delivery Method Nasal Cannula 10/16/24 08:00 Oxygen Flow Rate 1 10/16/24 08:00 Pain Level 0 10/15/24 21:35 Intake & Output 10/15/24 10/16/24 10/16/24 23:59 11:59 23:59 Intake Total 240 / 240 460 / 880 420 / 880 Output Total 700 / 1350 650 / 1350 Balance 240 / 240 -240 / -470 -230 / -470 Weight 102.2 kg Intake: IV 100 / 100 Oral 240 / 240 360 / 780 420 / 780 Output: Urine 700 / 1350 650 / 1350 Other: Urine Color Yellow Yellow Urine Appearance Clear Clear Comment stress incont Data Completed and Pending Labs on day of discharge: Labs from last 24 hours 10/16/24 10/16/24 10/15/24 15:33 05:36 22:30 WBC 5.34 RBC 4.44 Hgb 12.9 Hct 34.9 L MCV 79 L MCH 29.1 MCHC 37.0 H D RDW 16.2 H Plt Count 151 MPV 9.6 Immature Gran % Neutrophils % Lymphocytes % Monocytes % Eosinophils % Basophils % Nucleated RBC % Absolute Neutrophils Absolute Lymphocytes Absolute Monocytes Absolute Eosinophils Absolute Basophils PT INR APTT VBG pH VBG pCO2 VBG pO2 VBG HCO3 VBG Total CO2 VBG O2 Saturation VBG Base Excess Sodium 145 144 Potassium Pending 2.9 L* 3.2 L Chloride 107 106 Carbon Dioxide 29.2 27.8 Anion Gap 8.8 10.2 BUN 19 H 19 H Creatinine 1.0 0.9 Est GFR (CKD-EPI 2020) 65.71 74.57 Glucose 165 H 135 H Hemoglobin A1c 7.3 H Calcium 9.0 9.3 Magnesium 1.9 Total Bilirubin 0.31 0.32 AST 20 19 ALT 29 30 Alkaline Phosphatase 63 67 Total Protein 6.8 7.0 Albumin 3.4 3.6 TSH Urine Color Urine Clarity Urine pH Ur Specific [place] Urine Protein Urine Ketones Urine Blood Urine Nitrite Urine Bilirubin Urine Urobilinogen Ur Leukocyte Esterase Urine RBC Urine WBC Ur Epithelial Cells Urine Crystals Urine Bacteria Urine Casts Urine Mucus Urine Other Ur Culture Indicated? Urine Glucose Salicylates < 2.8 Urine Opiates Screen Urine Methadone Screen Acetaminophen < 2 Ur Barbiturates Screen Ur Tricyclics Screen Ur Amphetamines Screen U Benzodiazepines Scrn Urine Cocaine Screen Ur THC Screen Ethyl Alcohol Add-On Test Request DONE 10/15/24 10/15/24 10/15/24 18:32 18:10 17:55 WBC 6.86 RBC 4.67 Hgb 12.0 Hct 36.4 MCV 78 L MCH 25.7 L MCHC 33.0 RDW 15.9 H Plt Count 163 MPV 9.5 Immature Gran % 0.1 Neutrophils % 60.5 Lymphocytes % 31.5 Monocytes % 6.3 Eosinophils % 0.9 Basophils % 0.7 Nucleated RBC % 0.0 Absolute Neutrophils 4.15 Absolute Lymphocytes 2.16 Absolute Monocytes 0.43 Absolute Eosinophils 0.06 Absolute Basophils 0.05 PT 11.0 INR 1.1 APTT 25.5 VBG pH 7.46 H VBG pCO2 35 L VBG pO2 98 VBG HCO3 25 VBG Total CO2 22 L VBG O2 Saturation 99 VBG Base Excess 1 Sodium 141 Potassium 2.5 L* Chloride 102 Carbon Dioxide 25.5 Anion Gap 13.5 H BUN 20 H Creatinine 1.0 Est GFR (CKD-EPI 2020) 65.71 Glucose 179 H Hemoglobin A1c Calcium 9.3 Magnesium 1.7 L Total Bilirubin 0.31 AST 23 ALT 33 Alkaline Phosphatase 70 Total Protein 7.0 Albumin 3.7 TSH 1.42 Urine Color Yellow Urine Clarity Clear Urine pH 7.0 Ur Specific [place] 1.020 Urine Protein Negative Urine Ketones Negative Urine Blood Negative Urine Nitrite Negative Urine Bilirubin Negative Urine Urobilinogen 0.2 Ur Leukocyte Esterase Trace H Urine RBC 0-2 Urine WBC 5-10 Ur Epithelial Cells Rare Urine Crystals Few Amorphous Urine Bacteria Few Urine Casts 0-2 Hyaline Urine Mucus Trace Urine Other Few Transitional Ur Culture Indicated? No Urine Glucose Negative Salicylates < 2.8 Urine Opiates Screen Negative Urine Methadone Screen Negative Acetaminophen < 2 Ur Barbiturates Screen Negative Ur Tricyclics Screen Negative Ur Amphetamines Screen Negative U Benzodiazepines Scrn Negative Urine Cocaine Screen Negative Ur THC Screen Negative Ethyl Alcohol < 3.0 Add-On Test Request PFSH All Active Problems (Updated 10/16/24 @ 09:39 by Elijah Strickland) DVT prophylaxis (Acute) Hypoxia (Acute) Hypothyroid (Chronic) HTN (hypertension) (Chronic) Bipolar disorder (Acute) Intentional overdose (Acute) Hypomagnesemia (Acute) Hypokalemia (Acute) Overdose (Acute) Surgical History (Updated 08/23/18 @ 14:33 by [employer] [place]) Ligation of fallopian tube Cholecystectomy Social History Smoking/Tobacco Use Status: Never Smoking risk assessment performed?: Yes Drug use: Never Housing: house Time Spent with Patient Time Spent with Patient: 70-84 minutes4 Time was spent: preparing to see the patient(eg.review tests), obtaining and/or reviewing separately otained hiistory, ordering medications,tests, procedures, referring, communicating with other health health care coordinator, indepentently interpreting results, counseling the patient and care coordination
--- NOTE | 2024-10-16 16:03 | CHAPLAIN ---
Abigail was sitting up in the chair when I visited. She had just finished speaking with Care Management. Abigail was pleasant and easily engaged in a conversation. 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 She lives in [place] with her . I explained my role and offered support.
[2024-10-16 16:19] LABS: Potassium 3.6 mmol/L (3.5-5.1)
--- NOTE | 2024-10-18 11:30 | NUR.NOTE ---
Access chart to reconcile EKG orders with EKGs in [facility]. Duplicate order cancelled. Nursing Note:
== END 2024-10-16 16:40 | disposition home or self-care (01) | DRG 918 ==
LOC: ER 19:15 → ICU 21:06
PROVIDERS: Family Medicine; Admitting Provider Family Medicine; Emergency Provider Emergency Medicine; Visit Provider Family Medicine
DX: T43.592A Poisoning by other antipsychotics and neuroleptics, intentional self-harm, initial encounter (principal); F31.4 Bipolar disorder, current episode depressed, severe, without psychotic features; J98.11 Atelectasis; R00.0 Tachycardia, unspecified; E87.6 Hypokalemia; I10 Essential (primary) hypertension; E03.9 Hypothyroidism, unspecified; R09.02 Hypoxemia; E83.42 Hypomagnesemia; F43.10 Post-traumatic stress disorder, unspecified; J45.909 Unspecified asthma, uncomplicated; Z79.899 Other long term (current) drug therapy
CPT/HCPCS: 00123; 36415; 80053; 80307; 82805; 85027; 93005; 96127; 96365; 99285; 71046; 80320; 80329; 81003; 81015; 83036; 83735; 84132; 84443; 85025; 85610; 85730; 93010; 99223; 99239; J1815; J3475; J3480